=== PATIENT | male | born 1970 | race Caucasian/White ===

== ENCOUNTER 2022-05-11 01:04 | Inpatient (IN) | payer BC, OTHER ==
[2022-05-11] MEDS ORDERED: Aspirin Chewable 81 MG TAB ONE (01:31)
[2022-05-11] MEDS ORDERED: Mag-Al Plus 1200 MG/1200 MG/120 MG/30 ML UDCUP ONE (01:49)
[2022-05-11 02:09] LABS: #Basophils 0.1 10x3/uL (0.0-0.2); #Eosinphils 0.1 10x3/uL (0.0-0.5); #Monocytes 0.8 10x3/uL (0.0-1.1); #Neutrophils 4.5 10x3/uL (1.5-8.4); %Basophils 0.5 % (0.0-2.0); %Eosinophils 1.2 % (0.0-6.0); %Lymphocytes 40.7 % (18.0-47.0); %Monocytes 8.6 % (0.0-10.0); %Neutrophils 48.8 % (40.0-75.0); Hemoglobin 15.7 g/dL (13.5-17.5); Mean Corpuscular HGB CONC 34.7 g/dL (32.0-36.0); Mean Corpuscular Hemoglobin 31.2 pg (27.0-33.0); Mean Corpuscular Volume 90.1 fl (81.2-95.1); Mean Platelet Volume 11.1 fl (7.4-10.4); Platelet Count 198 10x3/uL (150-450); RBC Distribution Width 12.7 % (11.5-14.5); Red Blood Cell (RBC) Count 5.03 10x6/uL (4.32-5.72); White Blood Cell (WBC) Count 9.2 10x3/uL (3.5-10.5)
[2022-05-11 02:16] LABS: ALT (SGPT) 28 U/L (8-55); AST (SGOT) 18 U/L (5-34); Albumin 4.2 g/dL (3.5-5.0); Alkaline Phosphatase 73 U/L (40-110); Anion Gap 15 mmol/L (10-20); BUN (Urea Nitrogen) 15 mg/dL (8.4-25.7); Bilirubin, Total 0.3 mg/dL (0.2-1.2); Calc. Creatinine Clearance 0 mL/min (70-130); Calcium 9.3 mg/dL (7.8-10.44); Carbon Dioxide 25 mmol/L (22-29); Chloride 103 mmol/L (98-107); Estimated GFR 82; Globulin 2.7 g/dL (2.4-3.5); Glucose 121 mg/dL (70-105); Lipase 35 U/L (8-78); Potassium 4.1 mmol/L (3.5-5.1); Protein, Total 6.9 g/dL (6.0-8.3); Sodium 139 mmol/L (136-145)
[2022-05-11] MEDS ORDERED: Nitroglycerin 0.4 MG TAB 1 EACH ONE (02:18)
[2022-05-11] MEDS ORDERED: Morphine 4 MG/ML VIAL ONE ×4 (02:24→05:33)
[2022-05-11] MEDS ORDERED: Ondansetron PF 4 MG/2 ML Vial ONE (02:25)
[2022-05-11 02:33] LABS: CKMB 2.3 ng/mL (0-6.6)
[2022-05-11] MEDS ORDERED: Nitroglycerin 2% Ointment 1 INCH/1 GM Packet ONE (02:35)
[2022-05-11 02:48] LABS: INR-International Normal Ratio 0.9; PTT 25.1 sec (22.0-33.0); Prothrombin Time 10.3 sec (9.5-12.1)
[2022-05-11] MEDS ORDERED: Nitroglycerin 50 MG/250 ML BOT 250 ML ONE ×2 (02:57→04:29)
[2022-05-11] MEDS ORDERED: Fentanyl 100 MCG/2 ML VIAL ONE ×3 (03:13→04:32)
[2022-05-11] MEDS ORDERED: Lorazepam 2 MG/ML VIAL ONE (03:50)
[2022-05-11] MEDS ORDERED: Enoxaparin Sodium 100 MG/ML SYRINGE ONE (03:59)
[2022-05-11] MEDS ORDERED: Heparin 10,000 UNITS/ 10 ML VIAL ONE (04:29)
[2022-05-11] MEDS ORDERED: Adenosine 6 MG/2 ML VIAL ONE (04:31)
[2022-05-11] MEDS ORDERED: Midazolam HCl 2 mg/2 ml Vial ONE ×3 (04:32→05:33)
[2022-05-11] MEDS ORDERED: Lidocaine 1% 20 ML MDV ONE (04:51)
[2022-05-11 04:53] LABS: SARS-CoV-2 NAA Rapid Test Not Detected (NotDetected)
[2022-05-11] MEDS ORDERED: TICAGRELOR 90 MG TABLET ONE (04:59)
[2022-05-11] MEDS ORDERED: niCARdipine 25 MG/10 ML VIAL ONE (05:32)
[2022-05-11] MEDS ORDERED: Mag-Al 1200 mg/1200 mg/30 ML UDCUP PO PRN (05:58)
[2022-05-11] MEDS ORDERED: cloNIDine 0.1 MG TAB PO PRN (05:58)
[2022-05-11] MEDS ORDERED: Zolpidem Tartrate 5 MG TAB PO PRN (05:58)
[2022-05-11] MEDS ORDERED: Milk Of Magnesia 30 ML UDCUP PO PRN (05:58)
[2022-05-11 06:25] VITALS: BMI 31.1
[2022-05-11] MEDS: Sodium Chloride 0.9% 1,000 ML IV SCH ×2 (06:39→15:10)
[2022-05-11] MEDS: Morphine 4 MG/ML VIAL SLOW IVP PRN ×2 (06:39→16:56)
[2022-05-11] MEDS: TICAGRELOR 90 MG TABLET PO SCH ×2 (08:27→20:39)
[2022-05-11] MEDS: Metoprolol Tartrate 25 MG TAB PO SCH ×2 (08:27→20:39)
[2022-05-11] MEDS: Losartan 25 MG TAB PO SCH (08:27)
[2022-05-11] MEDS: Aspirin Chewable 81 MG TAB PO SCH (08:28)
[2022-05-11 08:40] LABS: Troponin I 16.086 ng/mL (< 0.028)
[2022-05-11] MEDS ORDERED: Lisinopril 2.5 MG TAB PO SCH (09:00)
[2022-05-11 12:36] LABS: Hemoglobin A1c 5.3 % (4.0-6.0)
[2022-05-11] MEDS ORDERED: Iopamidol 300 61% 100 ML VIAL FS ONE (12:48)
[2022-05-11 12:53] LABS: Troponin I Greater than 45.000 ng/mL (< 0.028)
[2022-05-11 18:21] VITALS: BP 124/92; TEMP 97
[2022-05-11] MEDS ORDERED: Atorvastatin Calcium 40 MG TAB PO SCH (21:00)
[2022-05-12] MEDS: Sodium Chloride 0.9% 1,000 ML IV SCH ×2 (02:20→10:30)
[2022-05-12 05:31] LABS: ALT (SGPT) 87 U/L (8-55); AST (SGOT) 259 U/L (5-34); Albumin 3.9 g/dL (3.5-5.0); Alkaline Phosphatase 54 U/L (40-110); Anion Gap 10 mmol/L (10-20); BUN (Urea Nitrogen) 9 mg/dL (8.4-25.7); Bilirubin, Total 1.1 mg/dL (0.2-1.2); Calc. Creatinine Clearance 137 mL/min (70-130); Calcium 8.8 mg/dL (7.8-10.44); Carbon Dioxide 25 mmol/L (22-29); Chloride 106 mmol/L (98-107); Estimated GFR 103; Glucose 112 mg/dL (70-105); Potassium 3.9 mmol/L (3.5-5.1); Protein, Total 6.9 g/dL (6.0-8.3); Sodium 137 mmol/L (136-145)
[2022-05-12 05:33] LABS: #Monocytes 1.1 10x3/uL (0.0-1.1); #Neutrophils 7.5 10x3/uL (1.5-8.4); %Basophils 0.3 % (0.0-2.0); %Eosinophils 0.1 % (0.0-6.0); %Lymphocytes 22.2 % (18.0-47.0); %Monocytes 10.2 % (0.0-10.0); %Neutrophils 66.8 % (40.0-75.0); Mean Corpuscular HGB CONC 34.2 g/dL (32.0-36.0); Mean Corpuscular Hemoglobin 30.8 pg (27.0-33.0); Mean Corpuscular Volume 90.2 fl (81.2-95.1); Mean Platelet Volume 11.3 fl (7.4-10.4); Platelet Count 182 10x3/uL (150-450); RBC Distribution Width 13.1 % (11.5-14.5); Red Blood Cell (RBC) Count 5.19 10x6/uL (4.32-5.72); White Blood Cell (WBC) Count 11.2 10x3/uL (3.5-10.5)
[2022-05-12] MEDS: Metoprolol Tartrate 25 MG TAB PO SCH (08:53)
[2022-05-12] MEDS: Losartan 25 MG TAB PO SCH (08:53)
[2022-05-12] MEDS: Aspirin Chewable 81 MG TAB PO SCH (08:53)
[2022-05-12] MEDS: TICAGRELOR 90 MG TABLET PO SCH (08:53)
== END 2022-05-12 12:42 | disposition home or self-care (01) | DRG 247 ==
LOC: CSHERS 01:04 → CSHIMCU 05:57
PROVIDERS: ADMIT Student in an Organized Health Care Education/Training Program; ATTEND Student in an Organized Health Care Education/Training Program
PROC: 027035Z Dilation of Coronary Artery, One Artery with Two Drug-eluting Intraluminal Devices, Percutaneous Approach (ICD-10-PCS; principal; 2022-05-11)
PROC: 4A023N7 Measurement of Cardiac Sampling and Pressure, Left Heart, Percutaneous Approach (ICD-10-PCS; 2022-05-11)
PROC: B2111ZZ Fluoroscopy of Multiple Coronary Arteries using Low Osmolar Contrast (ICD-10-PCS; 2022-05-11)
PROC: B2151ZZ Fluoroscopy of Left Heart using Low Osmolar Contrast (ICD-10-PCS; 2022-05-11)
PROC: B240ZZ3 Ultrasonography of Single Coronary Artery, Intravascular (ICD-10-PCS; 2022-05-11)
DX: I21.09 ST elevation (STEMI) myocardial infarction involving other coronary artery of anterior wall (principal); I47.2 Ventricular tachycardia; K21.9 Gastro-esophageal reflux disease without esophagitis; I10 Essential (primary) hypertension; I25.10 Atherosclerotic heart disease of native coronary artery without angina pectoris; Z20.822 Contact with and (suspected) exposure to COVID-19; Z87.19 Personal history of other diseases of the digestive system; Z82.49 Family history of ischemic heart disease and other diseases of the circulatory system; Z90.49 Acquired absence of other specified parts of digestive tract; Z79.899 Other long term (current) drug therapy
CPT/HCPCS: 36415; 71045; 80053; 82553; 83036; 83690; 84484; 85025; 85610; 85730; 92921; 92941; 92978; 92979; 93005; 93010; 93306; 93458; 94760; 96372; 96374; 96375; 96376; 97139; 99152; 99153; C1725; C1753; C1760; C1769; C1874; C1887; C9606; J0153; J1644; J1650; J2060; J2250; J2270; J2405; J3010; J7050; Q9967; U0002